=== PATIENT | male | born 1940 | race African-American/Black ===

== ENCOUNTER 2020-08-07 22:15 | Inpatient (IN) | payer MEDICARE ==
[~2020-08-07] VITALS: Ht 175.3 cm; Wt 52.2 kg
[2020-08-08] VITALS (10 sets, daily range): BP systolic 125–166; BP diastolic 68–80
[2020-08-08] MEDS ORDERED: ONDANSETRON HCL INJ 2MG/ML 2ML 2 MG/ML VIAL IV STA (00:09)
[2020-08-08] MEDS ORDERED: MORPHINE SULFATE INJ 2 MG/ML SYR IV STA (00:09)
[2020-08-08 00:28] LABS: BASOPHILS % 0.2 % (0.0-1.0); EOSINOPHILS # (AUTO) 0.1 (0.0-0.4); EOSINOPHILS % 0.5 % (0.0-6.0); HEMATOCRIT 37.9 % (38.2-49.6); HEMOGLOBIN 11.5 g/dL (14.0-18.0); MEAN CORPUSCULAR HGB CONC 30.3 g/dL (31-35); MEAN CORPUSCULAR VOLUME 75.6 fL (81-99); MONOCYTES % 10.3 % (4.4-11.3); NEUTROPHILS # (AUTO) 6.3 (2.1-6.9); NEUTROPHILS % 67.7 % (38.7-80.0); PLATELET COUNT 188 x10e3/uL (140-360); RED BLOOD COUNT 5.01 x10e6/uL (4.3-5.7); RED CELL DISTRIBUTION WIDTH 15.4 % (11.7-14.4)
[2020-08-08] MEDS ORDERED: ONDANSETRON HCL INJ 2MG/ML 2ML 2 MG/ML VIAL IV PRN (00:30)
[2020-08-08 00:48] LABS: ALANINE AMINOTRANSFERASE 17 IU/L (0-55); ALBUMIN 3.6 g/dL (3.5-5.0); ALBUMIN/GLOBULIN RATIO 0.9 (0.8-2.0); ALKALINE PHOSPHATASE 98 IU/L (40-150); ANION GAP 14.4 mmol/L (8-16); BLOOD UREA NITROGEN 16 mg/dL (7-26); BUN/CREATININE RATIO 16 (6-25); CALCIUM 8.9 mg/dL (8.4-10.2); CARBON DIOXIDE 20 mmol/L (22-29); CHLORIDE 109 mmol/L (98-107); CREATININE, SERUM 1.03 mg/dL (0.72-1.25); EST GLOMERULAR FILTRATION RATE > 60 ML/MIN (60-); GLUCOSE 137 mg/dL (74-118); POTASSIUM 4.4 mmol/L (3.5-5.1); SODIUM 139 mmol/L (136-145)
[2020-08-08] MEDS: SODIUM CHLORIDE 0.9% 1000ML 1,000 ML IV SCH (02:10)
[2020-08-08 06:34] LABS: INR 0.97; PROTHROMBIN TIME 13.5 seconds (11.9-14.5)
[2020-08-08 06:35] LABS: PARTIAL THROMBOPLASTIN TIME 34.5 seconds (23.8-35.5)
[2020-08-08] MEDS ORDERED: DEXTROSE 50% SYRINGE 50 ML IV PRN (12:30)
[2020-08-08] MEDS ORDERED: FENTANYL CITRATE/PF 100MCG/2 ML INJ ONE (12:36)
[2020-08-08] MEDS ORDERED: ROPIVACAINE 246.25 MG, EPINEPHRINE HCL 1:1000 1ML 0.5 MG, CLONIDINE HCL 0.08 MG, KETORO... INJ ONE ×5 (13:00)
[2020-08-08] MEDS ORDERED: VANCOMYCIN HCL 1 GM VIAL ONE (13:40)
[2020-08-08] MEDS ORDERED: TRANEXAMIC ACID 1,000 MG/10 ML ML ONE (13:40)
[2020-08-08] MEDS: FAMOTIDINE 20 MG TAB PO SCH (13:59)
[2020-08-08] MEDS: INSULIN REGULAR, HUMAN 100 UNIT/1 ML 3ML VIAL SQ SCH ×2 (16:30→20:05)
[2020-08-08] MEDS ORDERED: ROCURONIUM BROMIDE 10 MG/ML 5ML VIAL IV ONE (16:45)
[2020-08-08] MEDS ORDERED: SEVOFLURANE INHAL SOLN 250 ML PEN BTL ONE (16:45)
[2020-08-08] MEDS ORDERED: PROPOFOL IV EMULSION 10 MG/ML 20 ML VIAL ONE (16:45)
[2020-08-08] MEDS ORDERED: LIDOCAINE HCL 2% LOCAL INJ 5 ML SDV VIAL INJ ONE (16:45)
[2020-08-08] MEDS ORDERED: POVIDONE IODINE 0.05% 0.05 % ML PO ONE (16:45)
[2020-08-08] MEDS ORDERED: METFORMIN HCL500 MG PO (19:42)
[2020-08-08] MEDS ORDERED: ASPIRIN81 MG PO (19:42)
[2020-08-08] MEDS ORDERED: GABAPENTIN300 MG PO (19:42)
[2020-08-08 21:14] LABS: BASOPHILS % 0.3 % (0.0-1.0); EOSINOPHILS % 0.3 % (0.0-6.0); HEMATOCRIT 37.5 % (38.2-49.6); HEMOGLOBIN 11.2 g/dL (14.0-18.0); LYMPHOCYTES # (AUTO) 1.7 (1.0-3.2); LYMPHOCYTES % 14.7 % (18.0-39.1); MEAN CORPUSCULAR HEMOGLOBIN 22.8 pg (28-32); MEAN CORPUSCULAR HGB CONC 29.9 g/dL (31-35); MEAN CORPUSCULAR VOLUME 76.2 fL (81-99); MONOCYTES # (AUTO) 1.2 (0.2-0.8); MONOCYTES % 10.5 % (4.4-11.3); NEUTROPHILS # (AUTO) 8.7 (2.1-6.9); NEUTROPHILS % 73.7 % (38.7-80.0); PLATELET COUNT 172 x10e3/uL (140-360); RED BLOOD COUNT 4.92 x10e6/uL (4.3-5.7); RED CELL DISTRIBUTION WIDTH 15.1 % (11.7-14.4)
[2020-08-08 21:35] LABS: ANISOCYTOSIS SLIGHT; HYPOCHROMASIA SLIGHT; MICROCYTOSIS SLIGHT; PLATELET ESTIMATE ADEQUATE; PLATELET MORPHOLOGY COMMENT NORMAL
[2020-08-08 21:43] LABS: BLOOD UREA NITROGEN 10 mg/dL (7-26); CALCIUM 8.4 mg/dL (8.4-10.2); CARBON DIOXIDE 16 mmol/L (22-29); CHLORIDE 108 mmol/L (98-107); GLUCOSE 121 mg/dL (74-118); SODIUM 138 mmol/L (136-145)
[2020-08-08 22:07] LABS: BUN/CREATININE RATIO 10 (6-25); CREATININE, SERUM 0.97 mg/dL (0.72-1.25); EST GLOMERULAR FILTRATION RATE > 60 ML/MIN (60-)
[2020-08-08] MEDS: CEFAZOLIN SOD 1 GM/NS 50ML 50 ML IV SCH (23:49)
[2020-08-09 04:47] VITALS: BP 159/85
[2020-08-09] MEDS: SODIUM CHLORIDE 0.9% 1000ML 1,000 ML IV SCH (06:01)
[2020-08-09 07:22] LABS: BASOPHILS % 0.1 % (0.0-1.0); EOSINOPHILS % 0.3 % (0.0-6.0); HEMATOCRIT 34.5 % (38.2-49.6); HEMOGLOBIN 10.4 g/dL (14.0-18.0); LYMPHOCYTES # (AUTO) 0.8 (1.0-3.2); LYMPHOCYTES % 8.8 % (18.0-39.1); MEAN CORPUSCULAR HEMOGLOBIN 22.7 pg (28-32); MEAN CORPUSCULAR HGB CONC 30.1 g/dL (31-35); MEAN CORPUSCULAR VOLUME 75.3 fL (81-99); MONOCYTES # (AUTO) 0.9 (0.2-0.8); MONOCYTES % 10.3 % (4.4-11.3); NEUTROPHILS # (AUTO) 7.1 (2.1-6.9); NEUTROPHILS % 80.2 % (38.7-80.0); PLATELET COUNT 143 x10e3/uL (140-360); RED BLOOD COUNT 4.58 x10e6/uL (4.3-5.7); RED CELL DISTRIBUTION WIDTH 14.9 % (11.7-14.4)
[2020-08-09] MEDS: INSULIN REGULAR, HUMAN 100 UNIT/1 ML 3ML VIAL SQ SCH ×4 (07:30→20:30)
[2020-08-09 07:41] LABS: ALANINE AMINOTRANSFERASE 12 IU/L (0-55); ALBUMIN 3.1 g/dL (3.5-5.0); ALBUMIN/GLOBULIN RATIO 0.8 (0.8-2.0); ALKALINE PHOSPHATASE 80 IU/L (40-150); ANION GAP 15.1 mmol/L (8-16); BLOOD UREA NITROGEN 11 mg/dL (7-26); BUN/CREATININE RATIO 12 (6-25); CALCIUM 8.3 mg/dL (8.4-10.2); CARBON DIOXIDE 19 mmol/L (22-29); CHLORIDE 107 mmol/L (98-107); CREATININE, SERUM 0.94 mg/dL (0.72-1.25); EST GLOMERULAR FILTRATION RATE > 60 ML/MIN (60-); GLUCOSE 116 mg/dL (74-118); POTASSIUM 4.1 mmol/L (3.5-5.1); SODIUM 137 mmol/L (136-145)
[2020-08-09] MEDS ORDERED: ONDANSETRON HCL 4 MG ORAL DISINTEGRATING TAB PO PRN (07:45)
[2020-08-09 08:01] LABS: MAGNESIUM 1.7 MG/DL (1.3-2.1)
[2020-08-09] MEDS: FAMOTIDINE 20 MG TAB PO SCH ×2 (08:17→15:54)
[2020-08-09] MEDS: CEFAZOLIN SOD 1 GM/NS 50ML 50 ML IV SCH ×2 (08:17→15:54)
[2020-08-09] MEDS: METOPROLOL SUCCINATE 25 MG TAB XL PO SCH (08:17)
[2020-08-09] MEDS: ASPIRIN 81 MG ENTERIC COATED PO SCH (08:17)
[2020-08-09 08:24] LABS: THYROID STIMULATING HORMONE 0.957 uIU/mL (0.350-4.940)
[2020-08-09 08:30] VITALS: BP 134/75
[2020-08-09 09:11] VITALS: BP 134/75
[2020-08-09 12:07] VITALS: BP 145/72
[2020-08-09] MEDS: ENOXAPARIN SOD INJ 40 MG/0.4 ML SYR SC SCH (16:15)
[2020-08-09 16:56] VITALS: BP 143/64
[2020-08-09] MEDS ORDERED: ENOXAPARIN SOD INJ 40 MG/0.4 ML SYR SC SCH (17:00)
[2020-08-09 20:00] VITALS: BP 151/65
[2020-08-09] MEDS ORDERED: TEMAZEPAM 15 MG CAP PO PRN (20:00)
[2020-08-09] MEDS: MORPHINE SULFATE INJ 4 MG/ML INJ 1ML IV PRN (20:33)
[2020-08-10] VITALS: BP 137/60
[2020-08-10 04:00] VITALS: BP 178/77
[2020-08-10] MEDS: MORPHINE SULFATE INJ 4 MG/ML INJ 1ML IV PRN (04:15)
[2020-08-10] MEDS: INSULIN REGULAR, HUMAN 100 UNIT/1 ML 3ML VIAL SQ SCH ×3 (07:30→16:30)
[2020-08-10] MEDS: FAMOTIDINE 20 MG TAB PO SCH ×2 (08:40→17:24)
[2020-08-10] MEDS: METOPROLOL SUCCINATE 25 MG TAB XL PO SCH (08:40)
[2020-08-10] MEDS: ASPIRIN 81 MG ENTERIC COATED PO SCH (08:40)
[2020-08-10 08:52] VITALS: BP 118/97
[2020-08-10 08:56] VITALS: BP 118/97
[2020-08-10] MEDS ORDERED: AMLODIPINE BESYLATE 5 MG TAB PO SCH (09:00)
[2020-08-10] MEDS ORDERED: GABAPENTIN 300 MG CAP PO SCH (09:00)
[2020-08-10 12:11] LABS: BASOPHILS % 0.2 % (0.0-1.0); EOSINOPHILS # (AUTO) 0.1 (0.0-0.4); HEMATOCRIT 29.8 % (38.2-49.6); HEMOGLOBIN 9.1 g/dL (14.0-18.0); LYMPHOCYTES % 18.8 % (18.0-39.1); MEAN CORPUSCULAR HEMOGLOBIN 22.9 pg (28-32); MEAN CORPUSCULAR HGB CONC 30.5 g/dL (31-35); MEAN CORPUSCULAR VOLUME 75.1 fL (81-99); MONOCYTES # (AUTO) 1.1 (0.2-0.8); MONOCYTES % 10.2 % (4.4-11.3); NEUTROPHILS # (AUTO) 7.2 (2.1-6.9); NEUTROPHILS % 69.4 % (38.7-80.0); PLATELET COUNT 200 x10e3/uL (140-360); RED BLOOD COUNT 3.97 x10e6/uL (4.3-5.7); RED CELL DISTRIBUTION WIDTH 14.7 % (11.7-14.4)
[2020-08-10 12:28] VITALS: BP 118/68
[2020-08-10 12:28] LABS: ANION GAP 13.3 mmol/L (8-16); BLOOD UREA NITROGEN 10 mg/dL (7-26); BUN/CREATININE RATIO 10 (6-25); CARBON DIOXIDE 24 mmol/L (22-29); CHLORIDE 106 mmol/L (98-107); CREATININE, SERUM 0.97 mg/dL (0.72-1.25); EST GLOMERULAR FILTRATION RATE > 60 ML/MIN (60-); GLUCOSE 111 mg/dL (74-118); POTASSIUM 4.3 mmol/L (3.5-5.1); SODIUM 139 mmol/L (136-145)
[2020-08-10 16:32] VITALS: BP 128/58
[2020-08-10] MEDS: ENOXAPARIN SOD INJ 40 MG/0.4 ML SYR SC SCH (17:24)
== END 2020-08-10 18:02 | DRG 522 ==
LOC: ER 22:21 → ERHOLD 08-08 00:47 → MED/SURG 08-08 01:34
PROVIDERS: ADMIT Internal Medicine; ATTEND Internal Medicine
PROC: 0SRR01A Replacement of Right Hip Joint, Femoral Surface with Metal Synthetic Substitute, Uncemented, Open Approach (ICD-10-PCS; principal; 2020-08-08 14:00)
DX: S72.001A Fracture of unspecified part of neck of right femur, initial encounter for closed fracture (principal); I69.351 Hemiplegia and hemiparesis following cerebral infarction affecting right dominant side; E44.1 Mild protein-calorie malnutrition; Z68.1 Body mass index [BMI] 19.9 or less, adult; Z20.822 Contact with and (suspected) exposure to COVID-19; E11.9 Type 2 diabetes mellitus without complications; Z79.84 Long term (current) use of oral hypoglycemic drugs; I69.320 Aphasia following cerebral infarction; W19.XXXA Unspecified fall, initial encounter; D64.9 Anemia, unspecified; R94.31 Abnormal electrocardiogram [ECG] [EKG]
CPT/HCPCS: 36415; 71045; 72170; 73523; 80048; 80053; 82948; 83036; 83540; 83735; 84443; 84466; 85025; 85610; 85730; 86850; 86900; 93005; 93041; 93306; 97139; 99284; J0171; J0690; J1650; J1817; J1885; J2001; J2270; J2795; J3010; J3370; J7030; U0002

== ENCOUNTER 2021-05-05 13:42 | Inpatient (IN) | payer MEDICARE ==
[~2021-05-05] VITALS: Ht 175.3 cm; Wt 52.2 kg
[~2021-05-05 13:42] MED LIST: ASPIRIN81 MG PO; GABAPENTIN300 MG PO; METFORMIN HCL500 MG PO
[2021-05-05] MEDS ORDERED: MEROPENEM 1 GM in SODIUM CHLORIDE 0.9% 100 ML 100 ML IV STA (14:08)
[2021-05-05] MEDS ORDERED: Vancomycin IV 1 GM in SODIUM CHLORIDE 0.9% 250ML 250 ML IV STA (14:08)
[2021-05-05] MEDS ORDERED: SODIUM CHLORIDE 0.9% 1000ML 1,000 ML IV STA ×2 (14:12→15:48)
[2021-05-05] MEDS ORDERED: MEROPENEM 1 GM in SODIUM CHLORIDE 0.9% 100 ML IV STA (14:14)
[2021-05-05 14:34] LABS: BASOPHILS % 0.2 % (0.0-1.0); EOSINOPHILS % 0.1 % (0.0-6.0); HEMATOCRIT 38.8 % (38.2-49.6); HEMOGLOBIN 11.5 g/dL (14.0-18.0); LYMPHOCYTES # (AUTO) 1.9 (1.0-3.2); LYMPHOCYTES % 13.2 % (18.0-39.1); MEAN CORPUSCULAR HEMOGLOBIN 22.9 pg (28-32); MEAN CORPUSCULAR HGB CONC 29.6 g/dL (31-35); MEAN CORPUSCULAR VOLUME 77.1 fL (81-99); MONOCYTES # (AUTO) 1.5 (0.2-0.8); MONOCYTES % 10.3 % (4.4-11.3); NEUTROPHILS # (AUTO) 10.7 (2.1-6.9); NEUTROPHILS % 75.8 % (38.7-80.0); PLATELET COUNT 206 x10e3/uL (140-360); RED BLOOD COUNT 5.03 x10e6/uL (4.3-5.7); RED CELL DISTRIBUTION WIDTH 14.4 % (11.7-14.4)
[2021-05-05 14:44] LABS: INR 1.06; PROTHROMBIN TIME 14.6 seconds (11.9-14.5)
[2021-05-05 14:45] LABS: PARTIAL THROMBOPLASTIN TIME 40.5 seconds (23.8-35.5)
[2021-05-05 14:52] LABS: ALBUMIN 3.5 g/dL (3.5-5.0); ALBUMIN/GLOBULIN RATIO 0.8 (0.8-2.0); ANION GAP 16.1 mmol/L (8-16); CREATININE, SERUM 1.29 mg/dL (0.72-1.25); MAGNESIUM 1.9 MG/DL (1.3-2.1); POTASSIUM 4.1 mmol/L (3.5-5.1)
[2021-05-05 14:57] LABS: B-TYPE NATRIURETIC PEPTIDE2 25.5 pg/mL (0-100)
[2021-05-05 15:37] LABS: CLARITY,URINE SL CLOUDY (CLEAR); COLOR,URINE STRAW (YELLOW); KETONES,URINE 2+ (NEGATIVE); LEUKOCYTE ESTERASE ,URINE NEGATIVE (NEGATIVE); NITRITE,URINE NEGATIVE (NEGATIVE); PROTEIN,URINE DIPSTICK 2+ (NEGATIVE); URINE UROBILINOGEN 0.2 mg/dL (0.2 - 1)
[2021-05-05 15:49] LABS: AMORPHOUS SEDIMENT,URINE MANY (FEW); BACTERIA,URINE MODERATE /HPF; EPITHELIAL CELLS,URINE RARE /LPF; WBC,URINE (MAN) 0-5 /HPF (0-5)
[2021-05-05] MEDS ORDERED: ONDANSETRON HCL INJ 2MG/ML 2ML 2 MG/ML VIAL IV PRN (16:30)
[2021-05-05] MEDS ORDERED: ACETAMINOPHEN 325 MG TAB PO PRN (16:30)
[2021-05-05] MEDS ORDERED: DEXTROSE 50% SYRINGE 50 ML IV PRN (16:30)
[2021-05-05] MEDS: SODIUM CHLORIDE 0.9% 1000ML 1,000 ML IV SCH (17:58)
[2021-05-05] MEDS: INSULIN LISPRO 100 UNIT/1 ML 3ML VIAL SQ SCH ×2 (17:58→20:19)
[2021-05-05] MEDS: FAMOTIDINE 20 MG/2 ML VIAL IV SCH (17:59)
[2021-05-05 18:16] VITALS: BP 106/70
[2021-05-05 18:17] VITALS: BP 106/70
[2021-05-05 18:18] VITALS: BP 106/70
[2021-05-05] MEDS ORDERED: MULTI-VITAMIN1 EACH PO (18:25)
[2021-05-05 19:00] VITALS: BP 119/87
[2021-05-05 20:00] VITALS: BP 119/87
[2021-05-05 21:00] VITALS: BP 119/87
[2021-05-06] VITALS (8 sets, daily range): BP systolic 119–175; BP diastolic 67–97
[2021-05-06 00:31] LABS: CREATINE KINASE MB 1.9 ng/mL (0-5.0)
[2021-05-06] MEDS: SODIUM CHLORIDE 0.9% 1000ML 1,000 ML IV SCH ×3 (02:37→22:30)
[2021-05-06] MEDS: FAMOTIDINE 20 MG/2 ML VIAL IV SCH ×2 (05:11→16:58)
[2021-05-06 05:39] LABS: BASOPHILS % 0.2 % (0.0-1.0); EOSINOPHILS % 0.1 % (0.0-6.0); HEMATOCRIT 30.6 % (38.2-49.6); HEMOGLOBIN 9.3 g/dL (14.0-18.0); LYMPHOCYTES # (AUTO) 1.3 (1.0-3.2); LYMPHOCYTES % 12.7 % (18.0-39.1); MEAN CORPUSCULAR HEMOGLOBIN 22.9 pg (28-32); MEAN CORPUSCULAR HGB CONC 30.4 g/dL (31-35); MEAN CORPUSCULAR VOLUME 75.2 fL (81-99); MONOCYTES # (AUTO) 0.9 (0.2-0.8); MONOCYTES % 9.2 % (4.4-11.3); NEUTROPHILS # (AUTO) 7.8 (2.1-6.9); NEUTROPHILS % 77.3 % (38.7-80.0); PLATELET COUNT 156 x10e3/uL (140-360); RED BLOOD COUNT 4.07 x10e6/uL (4.3-5.7); RED CELL DISTRIBUTION WIDTH 14.4 % (11.7-14.4)
[2021-05-06 06:05] LABS: ANION GAP 8.2 mmol/L (8-16); CREATININE, SERUM 0.8 mg/dL (0.72-1.25); POTASSIUM 3.2 mmol/L (3.5-5.1)
[2021-05-06 06:06] LABS: ALBUMIN 2.5 g/dL (3.5-5.0); ALBUMIN/GLOBULIN RATIO 0.9 (0.8-2.0)
[2021-05-06 06:10] LABS: CALCIUM 6.9 mg/dL (8.4-10.2)
[2021-05-06] MEDS: INSULIN LISPRO 100 UNIT/1 ML 3ML VIAL SQ SCH ×4 (07:27→20:50)
[2021-05-06 07:38] LABS: CHOL/HDL RATIO 3.2 (3.9-4.7); MAGNESIUM 1.5 MG/DL (1.3-2.1); PHOSPHORUS 1.5 MG/DL (2.3-4.7)
[2021-05-06] MEDS: ASPIRIN 81 MG CHEW TAB PO SCH (08:34)
[2021-05-06] MEDS: GABAPENTIN 300 MG CAP PO SCH (08:34)
[2021-05-06] MEDS: MULTIVITAMINS/MINERALS TAB PO SCH (08:34)
[2021-05-06] MEDS: METFORMIN HCL 500 MG TAB PO SCH ×2 (08:34→16:58)
[2021-05-06] MEDS ORDERED: CALCIUM GLUCONATE 10% INJ 4.65 MEQ in SODIUM CHLORIDE 0.9% 50ML 50 ML IV ONE (09:30)
[2021-05-06] MEDS ORDERED: CALCIUM CHLORIDE IV ONE (11:00)
[2021-05-06] MEDS ORDERED: SODIUM CHLORIDE 0.9% IV ONE (11:00)
[2021-05-06 11:26] LABS: BAND NEUTROPHILS % (MANUAL) 7 %; LYMPHOCYTES % (MANUAL) 7 % (19-48); MONOCYTES % (MANUAL) 6 % (3.4-9.0); NEUTROPHILS % (MANUAL) 80 % (40-74); PLATELET ESTIMATE ADEQUATE; PLATELET MORPHOLOGY COMMENT NORMAL; RBC MORPHOLOGY COMMENT NORMAL
[2021-05-06] MEDS ORDERED: HYDRALAZINE HCL 20 MG/ML VIAL IV PRN (11:30)
[2021-05-06] MEDS ORDERED: ONDANSETRON HCL 4 MG ORAL DISINTEGRATING TAB PO PRN (12:15)
[2021-05-06] MEDS: CALCIUM CARBONATE 500 MG CHEWABLE TABS PO SCH (12:30)
[2021-05-06] MEDS: METOPROLOL SUCCINATE 25 MG TAB XL PO SCH (12:30)
[2021-05-06] MEDS ORDERED: Vancomycin IV 1 GM in SODIUM CHLORIDE 0.9% 250ML 250 ML IV SCH (12:30)
[2021-05-06] MEDS ORDERED: MAGNESIUM SULFATE 2GM/50ML 50 ML IV ONE ×2 (13:00→16:00)
[2021-05-06] MEDS ORDERED: POTASSIUM PHOSPHATE 15 MM in SODIUM CHLORIDE 0.9% 250ML 250 ML IV ONE (16:30)
[2021-05-06] MEDS: OSELTAMIVIR PHOSPHATE 75 MG CAP PO SCH (16:58)
[2021-05-06] MEDS ORDERED: SODIUM PHOSPHATE IN 0.9 % NACL 15 MMOL in SODIUM CHLORIDE 0.9% 250ML 250 ML IV ONE ×4 (20:00→23:00)
[2021-05-07] VITALS (9 sets, daily range): BP systolic 154–168; BP diastolic 65–88
[2021-05-07] MEDS: FAMOTIDINE 20 MG/2 ML VIAL IV SCH ×2 (05:02→17:21)
[2021-05-07 07:21] LABS: BASOPHILS % 0.2 % (0.0-1.0); EOSINOPHILS % 0.5 % (0.0-6.0); HEMATOCRIT 30.1 % (38.2-49.6); HEMOGLOBIN 9.2 g/dL (14.0-18.0); LYMPHOCYTES % 17.1 % (18.0-39.1); MEAN CORPUSCULAR HEMOGLOBIN 22.4 pg (28-32); MEAN CORPUSCULAR HGB CONC 30.6 g/dL (31-35); MEAN CORPUSCULAR VOLUME 73.4 fL (81-99); MONOCYTES # (AUTO) 0.7 (0.2-0.8); MONOCYTES % 11.6 % (4.4-11.3); NEUTROPHILS # (AUTO) 4.2 (2.1-6.9); NEUTROPHILS % 70.1 % (38.7-80.0); PLATELET COUNT 153 x10e3/uL (140-360)
[2021-05-07] MEDS: INSULIN LISPRO 100 UNIT/1 ML 3ML VIAL SQ SCH ×4 (07:30→20:40)
[2021-05-07 07:43] LABS: ALBUMIN 2.5 g/dL (3.5-5.0); ALBUMIN/GLOBULIN RATIO 0.8 (0.8-2.0); ANION GAP 10.3 mmol/L (8-16); CALCIUM 7.2 mg/dL (8.4-10.2); CREATININE, SERUM 0.81 mg/dL (0.72-1.25); POTASSIUM 3.3 mmol/L (3.5-5.1)
[2021-05-07 07:56] LABS: MAGNESIUM 1.8 MG/DL (1.3-2.1); PHOSPHORUS 2.2 MG/DL (2.3-4.7)
[2021-05-07] MEDS: MULTIVITAMINS/MINERALS TAB PO SCH (10:34)
[2021-05-07] MEDS: GABAPENTIN 300 MG CAP PO SCH (10:34)
[2021-05-07] MEDS: ASPIRIN 81 MG CHEW TAB PO SCH (10:34)
[2021-05-07] MEDS: OSELTAMIVIR PHOSPHATE 75 MG CAP PO SCH ×2 (10:35→17:34)
[2021-05-07] MEDS: METOPROLOL SUCCINATE 25 MG TAB XL PO SCH (10:36)
[2021-05-07] MEDS: CALCIUM CARBONATE 500 MG CHEWABLE TABS PO SCH (10:36)
[2021-05-07] MEDS: METFORMIN HCL 500 MG TAB PO SCH ×2 (10:37→17:34)
[2021-05-07] MEDS: SODIUM CHLORIDE 0.9% 1000ML 1,000 ML IV SCH (10:37)
[2021-05-07] MEDS ORDERED: DEXTROSE 50% SYRINGE 50 ML IV PRN (11:00)
[2021-05-07] MEDS ORDERED: MAGNESIUM SULFATE 2GM/50ML 50 ML IV NR (16:45)
[2021-05-07] MEDS ORDERED: POTASSIUM PHOSPHATE 15 MM in SODIUM CHLORIDE 0.9% 250ML 250 ML IV ONE (17:00)
[2021-05-08 00:55] VITALS: BP_SYST 107; BP_SYST 161; BP_DIAS 56; BP_DIAS 72
[2021-05-08] MEDS: FAMOTIDINE 20 MG/2 ML VIAL IV SCH ×2 (04:58→16:10)
[2021-05-08 05:19] VITALS: BP 166/78
[2021-05-08 06:48] LABS: BASOPHILS % 0.2 % (0.0-1.0); EOSINOPHILS # (AUTO) 0.1 (0.0-0.4); EOSINOPHILS % 0.8 % (0.0-6.0); HEMATOCRIT 32.2 % (38.2-49.6); HEMOGLOBIN 9.7 g/dL (14.0-18.0); LYMPHOCYTES # (AUTO) 1.7 (1.0-3.2); LYMPHOCYTES % 28.1 % (18.0-39.1); MEAN CORPUSCULAR HEMOGLOBIN 22.7 pg (28-32); MEAN CORPUSCULAR HGB CONC 30.1 g/dL (31-35); MEAN CORPUSCULAR VOLUME 75.4 fL (81-99); MONOCYTES # (AUTO) 0.6 (0.2-0.8); MONOCYTES % 10.1 % (4.4-11.3); NEUTROPHILS # (AUTO) 3.6 (2.1-6.9); NEUTROPHILS % 60.5 % (38.7-80.0); PLATELET COUNT 170 x10e3/uL (140-360); RED BLOOD COUNT 4.27 x10e6/uL (4.3-5.7); RED CELL DISTRIBUTION WIDTH 13.9 % (11.7-14.4)
[2021-05-08 07:04] LABS: ALBUMIN 2.7 g/dL (3.5-5.0); ALBUMIN/GLOBULIN RATIO 0.8 (0.8-2.0); ANION GAP 9.4 mmol/L (8-16); CREATININE, SERUM 0.94 mg/dL (0.72-1.25); POTASSIUM 3.4 mmol/L (3.5-5.1)
[2021-05-08] MEDS: INSULIN LISPRO 100 UNIT/1 ML 3ML VIAL SQ SCH ×3 (07:30→15:30)
[2021-05-08] MEDS: ASPIRIN 81 MG CHEW TAB PO SCH (08:23)
[2021-05-08] MEDS: GABAPENTIN 300 MG CAP PO SCH (08:23)
[2021-05-08] MEDS: MULTIVITAMINS/MINERALS TAB PO SCH (08:23)
[2021-05-08] MEDS: METFORMIN HCL 500 MG TAB PO SCH ×2 (08:23→16:10)
[2021-05-08] MEDS: OSELTAMIVIR PHOSPHATE 75 MG CAP PO SCH ×2 (08:23→16:10)
[2021-05-08] MEDS: METOPROLOL SUCCINATE 25 MG TAB XL PO SCH (08:24)
[2021-05-08] MEDS: CALCIUM CARBONATE 500 MG CHEWABLE TABS PO SCH (08:24)
[2021-05-08 08:27] VITALS: BP 185/76
[2021-05-08 08:52] VITALS: BP 185/76
[2021-05-08] MEDS ORDERED: MAGNESIUM SULFATE 2GM/50ML 50 ML IV ONE (11:00)
[2021-05-08] MEDS ORDERED: POTASSIUM PHOSPHATE 15 MM in SODIUM CHLORIDE 0.9% 250ML 250 ML IV ONE (11:00)
[2021-05-08] MEDS ORDERED: TOPROL XL25 MG PO (11:04)
[2021-05-08] MEDS ORDERED: TAMIFLU75 MG PO (11:05)
[2021-05-08] MEDS ORDERED: CALCIUM CARBON500 MG PO (11:09)
[2021-05-08 12:05] VITALS: BP 172/71
[2021-05-08 17:00] VITALS: BP 160/78
== END 2021-05-08 19:26 | disposition home health service (06) | DRG 193 ==
LOC: ER 13:49 → ERHOLD 16:30 → MED/SURG2 17:51 → OBSVTOIN 05-08 10:18
PROVIDERS: ADMIT Internal Medicine; ATTEND Internal Medicine
DX: J10.1 Influenza due to other identified influenza virus with other respiratory manifestations (principal); G93.41 Metabolic encephalopathy; I69.351 Hemiplegia and hemiparesis following cerebral infarction affecting right dominant side; E46 Unspecified protein-calorie malnutrition; Z68.1 Body mass index [BMI] 19.9 or less, adult; E86.0 Dehydration; E83.51 Hypocalcemia; E83.42 Hypomagnesemia; E11.649 Type 2 diabetes mellitus with hypoglycemia without coma; E87.6 Hypokalemia; Z74.09 Other reduced mobility; E83.39 Other disorders of phosphorus metabolism; E11.42 Type 2 diabetes mellitus with diabetic polyneuropathy; Z79.4 Long term (current) use of insulin; Z20.822 Contact with and (suspected) exposure to COVID-19
CPT/HCPCS: 36415; 36569; 51700; 70450; 71045; 80053; 80061; 81001; 82550; 82553; 82948; 83036; 83605; 83735; 83880; 84100; 84484; 85025; 85610; 85730; 87040; 87086; 93005; 94799; 96372; 97139; 99251; 99284; G0378; J2185; J3370; J3475; J7030; J7050; U0002